=== PATIENT | male | born 1965 | race Caucasian/White ===

== ENCOUNTER 2017-08-03 13:22 | Inpatient (IN) | payer MEDICAID ==
[~2017-08-03] VITALS: Ht 152.4 cm; Wt 102.5 kg
[~2017-08-03 13:22] MED LIST: ASPIRIN325 PO; ASPIRIN81 M2 PO; CATAPRES-TTS 11 EACH TRANSDERM; COZAAR 25 MG TA25 M1 PO; ENOXAPARIN30 MG/0.1 SUBQ; FLOMAX0.4 MG PO; GABAPENTIN 100100 MG PO; HYDROCHLOROTH12.5 M1 PO; LANTUS SUBQ; LIPITOR40 MG PO; METFORMIN HCL500 MG PO; NORVASC10 MG PO; PLAVIX 75 MG TA75 M1 PO; PRINIVIL40 MG PO; TOPROL XL25 MG PO; VITAMIN B-12500 MCG PO; VOLTAREN GEL 1100 G2 TOP; ZOLOFT50 MG PO; [UNRECOGNIZED DRUG - OTHER] TP
[2017-08-03 13:23] VITALS: BP 140/56
[2017-08-03] MEDS ORDERED: IRON325 PO (13:41)
[2017-08-03] MEDS ORDERED: BACTRIM DS TAB1 EACH PO (13:42)
[2017-08-03 14:06] LABS: ABSOLUTE BASOPHILS 0.1 thou/uL (0.0-0.2); ABSOLUTE EOSINOPHILS 0.6 thou/uL (0.0-0.7); ABSOLUTE MONOCYTES 0.6 thou/uL (0.0-1.2); ABSOLUTE NEUTROPHILS 7.1 thou/uL (1.6-8.1); BASOPHILS 1.2 %; EOSINOPHILS 5.6 %; HEMATOCRIT 22.4 % (42.0-52.0); HEMOGLOBIN 7.9 gm/dL (14.0-18.0); LYMPHOCYTES 18.9 %; MCH 29.8 pg (26.0-34.0); MCHC 35.1 g/dL (28.0-37.0); MONOCYTES 6.1 %; MPV 9.8 fl. (7.2-11.1); NUCLEATED RBCS 0 /100WBC; PLATELET COUNT* 202 thou/uL (150-400); POLYS 68.2 %; RBC 2.64 mil/uL (4.50-6.00); WBC 10.5 thou/uL (4.0-11.0)
[2017-08-03 14:13] LABS: CALCIUM 8.3 mg/dL (8.5-10.1); CREATININE 2.2 mg/dL (0.6-1.3); POTASSIUM 4.3 mmol/L (3.5-5.1)
[2017-08-03 14:26] LABS: ALBUMIN 1.5 g/dL (3.4-5.0); TOTAL BILIRUBIN 0.2 mg/dL (<0.1-1.0); TOTAL PROTEIN 5.2 g/dL (6.4-8.2)
[2017-08-03 15:06] LABS: URINE BILIRUBIN NEGATIVE (Negative); URINE BLOOD 2+ (Negative); URINE CLARITY SL CLOUDY; URINE COLOR YELLOW; URINE GLUCOSE-RANDOM TRACE (Negative); URINE KETONES NEGATIVE (Negative); URINE LEUKOCYTES-REFLEX 1+ (Negative); URINE NITRITE-REFLEX NEGATIVE (Negative); URINE PROTEIN 3+ (Negative); URINE UROBILINOGEN 0.2 E.U./dl (0.2-1.0)
[2017-08-03 15:13] LABS: SQUAMOUS NONE SEEN /LPF (0-3); URINE RBC 3-10 Few /HPF (0-2); URINE WBC-REFLEX >25 Many /HPF (0-5); WBC CLUMPS Moderate (None Seen)
[2017-08-03 15:14] LABS: AMORPHOUS URATES Many /LPF (None Seen); COARSE GRANULAR CASTS >10 Many /LPF (None Seen); TRANSITIONAL EPITHEL CELL >10 Many /LPF (None Seen)
[2017-08-03 16:07] VITALS: BP 142/61
[2017-08-03 16:25] VITALS: BP 138/64
[2017-08-03] MEDS ORDERED: LEVEMIR SUBQ (18:43)
[2017-08-03 20:21] VITALS: BP 146/66
[2017-08-03 23:58] VITALS: BP 156/66
[2017-08-04 03:52] VITALS: BP 150/65
[2017-08-04 05:21] LABS: HEMATOCRIT 23.4 % (42.0-52.0); HEMOGLOBIN 7.9 gm/dL (14.0-18.0); MCH 28.9 pg (26.0-34.0); MCHC 33.7 g/dL (28.0-37.0); MCV 85.9 fL (80.0-100.0); RBC 2.72 mil/uL (4.50-6.00); RDW-CV 13.9 % (10.5-14.5); WBC 8.7 thou/uL (4.0-11.0)
[2017-08-04 05:31] LABS: ALBUMIN 1.4 g/dL (3.4-5.0); MAGNESIUM 1.9 mg/dL (1.8-2.4); POTASSIUM 4.1 mmol/L (3.5-5.1); TOTAL BILIRUBIN 0.1 mg/dL (<0.1-1.0); TOTAL PROTEIN 4.8 g/dL (6.4-8.2)
[2017-08-04 09:10] VITALS: BP 154/53
[2017-08-04 12:02] VITALS: BP 162/71
[2017-08-04 12:03] VITALS: BP 162/71
--- NOTE | 2017-08-04 12:56 | EKG ---
[place] [address] ELECTROCARDIOGRAM REPORT Name: DAVID WOODY Room: [address] ADM IN .R.#: [id number] Admission: 08/03/17 Attend Phys: Jessica Jordan MD Discharge: Date of : 65 Report #: [id number] THIS REPORT FOR: //name// [facility] ED Test Date: 2017-08-03 Test Time: 14:05:04 Pat Name: DAVID WOODY Department: Room: [facility] Gender: M Spanish Tutor: Mary Kate GALLOWAY : 1965 Requested By: Patsy Rodas Order Number: [id number] MD: Tao Hernandez Measurements Intervals [place] Rate: 48 P: 12 OR: 160 QRS: -17 QRSD: 110 T: 35 QT: 466 QTc: 417 Interpretive Statements Sinus bradycardia Borderline left axis deviation Abnormal R-wave progression, early transition Baseline wander in lead(s) V2 Compared to ECG 03/30/2017 01:55:18 Sinus rhythm no longer present Electronically Signed On 08-04-2017 12:56:25 SLAG EXPANDER by Tao Hernandez [email or web address] <ELECTRONICALLY SIGNED> By: Tao Hernandez MD, [facility] 08/04/17 1256 1405 1405 Tao Hernandez MD, [facility] /EPI
[2017-08-04 17:50] VITALS: BP 162/73
[2017-08-04 20:27] VITALS: BP 160/68
[2017-08-05] VITALS: BP 154/69
[2017-08-05 05:11] LABS: HEMATOCRIT 24.2 % (42.0-52.0); HEMOGLOBIN 8.3 gm/dL (14.0-18.0); MCH 29.4 pg (26.0-34.0); MCHC 34.4 g/dL (28.0-37.0); MCV 85.6 fL (80.0-100.0); MPV 9.8 fl. (7.2-11.1); RBC 2.83 mil/uL (4.50-6.00); RDW-CV 14.2 % (10.5-14.5); WBC 10.4 thou/uL (4.0-11.0)
[2017-08-05 06:12] LABS: CALCIUM 8.3 mg/dL (8.5-10.1); CREATININE 1.7 mg/dL (0.6-1.3); MAGNESIUM 2.1 mg/dL (1.8-2.4); POTASSIUM 4.1 mmol/L (3.5-5.1)
[2017-08-05 10:00] VITALS: BP 167/78
[2017-08-05 13:30] VITALS: BP 168/67
[2017-08-05 15:30] VITALS: BP 168/67
[2017-08-06 00:31] VITALS: BP 183/87
[2017-08-06 07:41] LABS: HEMOGLOBIN 8.9 gm/dL (14.0-18.0); MCH 29.1 pg (26.0-34.0); MCHC 34.1 g/dL (28.0-37.0); MCV 85.5 fL (80.0-100.0); MPV 9.2 fl. (7.2-11.1); RBC 3.04 mil/uL (4.50-6.00); WBC 11.8 thou/uL (4.0-11.0)
[2017-08-06 07:52] LABS: CALCIUM 8.6 mg/dL (8.5-10.1); CREATININE 1.7 mg/dL (0.6-1.3); MAGNESIUM 2.1 mg/dL (1.8-2.4); POTASSIUM 4.3 mmol/L (3.5-5.1)
[2017-08-06] MEDS ORDERED: CATAPRESS3 TRANSDERM (08:35)
[2017-08-06] MEDS ORDERED: CIPRO500 MG PO (08:35)
[2017-08-06 09:00] VITALS: BP 184/82
[2017-08-06 10:36] VITALS: BP 184/82
[2017-08-06 10:40] VITALS: BP 184/82
[2017-08-06 11:52] VITALS: BP 184/82
== END 2017-08-06 11:50 | DRG 682 ==
LOC: M.ERS 13:22 → M.TBA-ER 15:31 → M.2W 15:31 → M.ORTHSURG 08-05 09:44
PROVIDERS: Physician Assistant; ADMIT Internal Medicine
DX: N17.9 Acute kidney failure, unspecified (principal); G93.40 Encephalopathy, unspecified; N39.0 Urinary tract infection, site not specified; I12.9 Hypertensive chronic kidney disease with stage 1 through stage 4 chronic kidney disease, or unspecified chronic kidney disease; N18.3 Chronic kidney disease, stage 3 (moderate); E11.40 Type 2 diabetes mellitus with diabetic neuropathy, unspecified; E11.22 Type 2 diabetes mellitus with diabetic chronic kidney disease; E11.319 Type 2 diabetes mellitus with unspecified diabetic retinopathy without macular edema; Z98.42 Cataract extraction status, left eye; Z98.41 Cataract extraction status, right eye; Z86.73 Personal history of transient ischemic attack (TIA), and cerebral infarction without residual deficits; Z79.899 Other long term (current) drug therapy; Z88.8 Allergy status to other drugs, medicaments and biological substances

== ENCOUNTER → 2017-08-21 | Outpatient (CLI) | payer MEDICAID ==
[~2017-08-21] MED LIST changes: +BACTRIM DS TAB1 EACH PO; +CATAPRESS3 TRANSDERM; +CEFTAZIDIME IV; +CIPRO500 MG PO; +IRON325 PO; +KLOR-CON 1010 MEQ PO; +LASIX 20 MG TAB20 MG PO; +LEVAQUIN 750 M750 MG PO; +LEVEMIR SUBQ; +LOPRESSOR25 PO; +RENA-VITE TABL0.8 MG PO; +RENAL-VITE TAB0.8 MG PO; +TYLENOL325 MG PO; +VANCO 1 GR1 GM/250 M IVPB; +VANCOCIN 250 M250 M1 PO; +VITAMINC500 PO
== END ==
LOC: M.ULTRA 09:00
DX: N17.9 Acute kidney failure, unspecified (principal); I15.0 Renovascular hypertension; N39.0 Urinary tract infection, site not specified; G93.40 Encephalopathy, unspecified

== ENCOUNTER 2017-10-04 12:13 | Inpatient (IN) | payer MEDICAID ==
[~2017-10-04] VITALS: Ht 185.4 cm; Wt 122.0 kg
[~2017-10-04 12:13] MED LIST changes: -CEFTAZIDIME IV; -KLOR-CON 1010 MEQ PO; -LASIX 20 MG TAB20 MG PO; -LEVAQUIN 750 M750 MG PO; -LOPRESSOR25 PO; -RENA-VITE TABL0.8 MG PO; -RENAL-VITE TAB0.8 MG PO; -TYLENOL325 MG PO; -VANCO 1 GR1 GM/250 M IVPB; -VANCOCIN 250 M250 M1 PO; -VITAMINC500 PO
[2017-10-04 12:14] VITALS: BP 173/73
[2017-10-04] MEDS ORDERED: LASIX 20 MG TAB20 MG PO (12:35)
[2017-10-04] MEDS ORDERED: COZAAR 25 MG TA25 M1 PO (12:35)
[2017-10-04] MEDS ORDERED: KLOR-CON 1010 MEQ PO (12:36)
[2017-10-04] MEDS ORDERED: RENAL-VITE TAB0.8 MG PO (12:36)
[2017-10-04] MEDS ORDERED: VITAMINC500 PO (12:37)
[2017-10-04] MEDS ORDERED: LOPRESSOR25 PO (12:38)
[2017-10-04 13:21] LABS: HEMATOCRIT 22.7 % (42.0-52.0); HEMOGLOBIN 7.6 gm/dL (14.0-18.0); MCHC 33.4 g/dL (28.0-37.0); MCV 89.8 fL (80.0-100.0); MPV 9.4 fl. (7.2-11.1); RBC 2.52 mil/uL (4.50-6.00)
[2017-10-04 13:29] LABS: ANION GAP 6 mmol/L (7-16); BUN 37 mg/dL (7-18); CALCIUM 8.2 mg/dL (8.5-10.1); CHLORIDE 117 mmol/L (98-107); CO2 24 mmol/L (21-32); CREATININE 1.5 mg/dL (0.6-1.3); GLUCOSE 203 mg/dL (70-99); POTASSIUM 4.1 mmol/L (3.5-5.1); SODIUM 147 mmol/L (136-145)
[2017-10-04 13:36] LABS: ALBUMIN 1.1 g/dL (3.4-5.0); ALKALINE PHOSPHATASE 130 U/L (46-116); SGOT 16 U/L (15-37); SGPT 15 U/L (30-65); TOTAL BILIRUBIN 0.2 mg/dL (<0.1-1.0); TOTAL PROTEIN 5.1 g/dL (6.4-8.2); TROPONIN-I LEVEL <0.06 ng/mL (<0.06)
--- NOTE | 2017-10-04 13:45 | NUR ---
PATIENTS SCROTUM IS THE SIZE OF A LARGE GRAPEFRUIT AND RED. MUCUS AROUND TIP OF PENIS WHERE AND CATHETER HAS THICK, DARK YELLOW URINE. BOTTOM IS RED, PEELING AND HAS AN AREA OF DARKER RED, OPEN AREA ON BOTH BUTTOCKS. PATIENT CLEANED AND ROLLED ON TO LEFT SIDE.
[2017-10-04 14:45] LABS: URINE BILIRUBIN NEGATIVE (Negative); URINE BLOOD 2+ (Negative); URINE CLARITY CLOUDY; URINE COLOR YELLOW; URINE GLUCOSE-RANDOM 1+ (Negative); URINE KETONES NEGATIVE (Negative); URINE PROTEIN 3+ (Negative); URINE UROBILINOGEN 0.2 E.U./dl (0.2-1.0)
[2017-10-04 14:51] LABS: URINE LEUKOCYTES-REFLEX 2+ (Negative); URINE NITRITE-REFLEX POSITIVE (Negative)
[2017-10-04 15:01] LABS: BACTERIA-REFLEX 1-9 Few /HPF (None Seen); MUCUS None Seen strn/LPF (None Seen); SQUAMOUS NONE SEEN /LPF (0-3); WBC CLUMPS Few (None Seen)
[2017-10-04 15:02] LABS: AMORPHOUS PHOSPHATES Few /LPF (None Seen); CASTS None Seen /LPF (None Seen)
--- NOTE | 2017-10-04 15:08 | NUR ---
PATIENTS BOTTOM CLEANED AND PATIENT ROLLED ON TO RIGHT SIDE AT THIS TIME.
--- NOTE | 2017-10-04 15:56 | EKG ---
[place] [address] ELECTROCARDIOGRAM REPORT Name: DAVID WOODY Room: [address] IN [facility]#: [id number] Admission: 10/04/17 Attend Phys: Steven Restrepo Discharge: Date of : 65 Report #: [id number] THIS REPORT FOR: //name// [facility] ED Test Date: 2017-10-04 Test Time: 12:30:51 Pat Name: DAVID WOODY Department: Room: Gender: Ear Nose Throat Physician: Mary Kate MUELLER : 1965 Requested By: Moris Hines Order Number: [id number] MD: Anatoly Costa Measurements Intervals [place] Rate: 56 P: 50 MN: 134 QRS: -11 QRSD: 102 T: 41 QT: 426 QTc: 412 Interpretive Statements Sinus rhythm Probable left atrial enlargement RSR' in V1 or V2, probably normal variant Compared to ECG 08/03/2017 14:05:04 RSR' in V1 or V2 now present Sinus bradycardia no longer present Electronically Signed On 10-04-2017 15:55:57 CDT by Anatoly Costa [email or web address] <ELECTRONICALLY SIGNED> By: Anatoly Costa MD, [facility] 10/04/17 1555 1230 1230 Anatoly Costa MD, FAC /EPI
[2017-10-04 16:16] VITALS: BP 174/76
[2017-10-04 17:00] VITALS: BP 174/81
--- NOTE | 2017-10-04 17:06 | NUR ---
WOUND CARE NOTE: WAS REQUESTED TO SEE PATIENT FOR WOUNDS. PATIENT PRESENTS WITH A STAGE 4 PRESSURE ULCER TO THE LEFT HEEL. FULL THICKNESS ULCERATION TO BONE. 100% OF WOUND BED WITH YELLOW, MOIST, ADHERENT SLOUGH. FOUL ODOR. MARVIN-WOUND MACERATED. AREA CLEANSED WITH WOUND CLEANSER, PATTED DRY. APPLIED OPTIFOAM AG AND SECURED WITH KERLIX. PATIENT WITH INCONTINENT ASSOCIATED DERMATITIS TO SACRAL AREA COMPLICATED BY POSSIBLE CANDIDIA. PATIENT IS INCONTINENT OF STOOL, BUT HAS DOWNS CATHETER. REDNESS, BLANCHABLE, SATELITE LESIONS EXTENDING INTO BILATERAL GROIN-WORSE ON LEFT THAN RIGHT. APPLIED BARRIER OINTMENT WITH ANTIFUNGAL. PATIENT TOLERATED WELL. EXTREMELY EDEMATOUS THROUGHOUT. 4+ PITTING PEDAL/LEG. PALPABLE PEDAL PULSES, BUT DIFFICULT DUE TO EDEMA. RECOMMEND TURN Q2 HOURS KEEP HEEL OFF BED--BOOTS ORDERED CONSULT PODIATRY ENCOURAGE GOOD NUTRITION AND HYDRATION FOR WOUND HEALING
--- NOTE | 2017-10-04 17:30 | NUR ---
ER ADMIT FROM ER VIA CART. ADMISSION ASSESSEMENT COMPLETE, DEFER TO COMPUTER CHARTING. BUSINESS INSIGHT AND ANALYTICS MANAGER PLACED TRACKING SR. ALERT, CONFUSED ORIENTED TO SELF ONLY, ANXOUS - REASSURANCE GIVEN. LUNGS DIMINISHED WITH CRACKLES, ROOM AIR WITH 02 SAT 94% - PITTING EDEMA IN EXTREMITIES. STAGE 4 WOUND ON LEFT HEEL, RASH/EXCORIATED AREA MARVIN-AREA AND BOTTOM - CREAM APPLIED. WOUND CARE NURSE NOTIFIED AND INTO SEE PATIENT FOR EVAL/TREATMENT. PATIENT ORIENTED TO ROOM/HOSPITAL AND CALL LIGHT - BED ALARM ON FLOOR SAFETY - LEFT HEEL ELEVATED ON PILLOW OFF MATTRESS - AWAITING FOR SPECIAL PROTECTIVE BOOT TO ARRIVE FOR LEFT FOOT. CALL LIGHT WITHIN REACH. WILL CONTINUE TO MONITOR.
[2017-10-05] VITALS: BP 178/90
--- NOTE | 2017-10-05 00:04 | NUR ---
PT ALERT ORIENTED. CALLS OUT FREQUENTLY HELP HELP. REASURANCE PROVIDED WITH FAST RESPONCE TO CALLS FOR HELP. TELMETRY SHOWS SR. UPPER AND LOWER EXTREMETY EDEMA. PT ON 2000ML FR. ICE CHIPS PROVIDED FOR DRY MOUTH. L HEEL DRSG D/I. UP ON PILLOWS, PERIAREA EXCORIATED. TURN Q 2 HRS. WILL CONTINUE TO MONITOR.
[2017-10-05 04:15] VITALS: BP 169/88
[2017-10-05 08:00] VITALS: BP 165/95
[2017-10-05 12:00] VITALS: BP 181/76
--- NOTE | 2017-10-05 13:18 | NUR ---
VSS, ASUMED CARE IN THE AM, ASSESSMENT PERFORMED AND CHARTED, DOWNS IS DRAINING AND PT IS A Q2 TURN, MAX ASSIST TO GET UP, ON RA AND LEFT SIDE UPPER AND LOWER WEAKNESS, PT STATES PAIN IN BUTT, LEFT HEEL HAS WOUND. PT GAOL IS KEEP ON SIDES AND OGG BUTT. WILL FOLLOW WITH PLAN OF CARE.
--- NOTE | 2017-10-05 13:56 | NUR ---
Pt resides at [facility], known to this CM. Pt is wc bound. Supportive family that is involved in POC. Spoke with Jazzy at [facility], they are able to accept Pt back at co.
[2017-10-05 15:19] VITALS: BP 163/70; BP 181/76
[2017-10-05 17:55] VITALS: BP 159/66
--- NOTE | 2017-10-05 20:01 | NUR ---
VSS, PT IS NOT PROGRESSING TOWARDS GOAL, PT IS BED REST AND A Q2 TURN, PT IS CONFUSED, FEED ARE UP ON PILLOWS AND LEFT HEEL WOUND IS C/D/I AND HAS BOOT ON, PT CALL OUT FOR HELP, FLUID RESTRICT IS IN PLACE AND HAS HAS 600 CC IN PO, PT STATES PAIN IN HIS BACK AND LEFT LEG, DOWNS IS IN PLACE AND IS DRIANING. HOURLY ROUNDS COMPLETED.
[2017-10-06] VITALS (7 sets, daily range): BP systolic 126–190; BP diastolic 60–102
--- NOTE | 2017-10-06 04:58 | NUR ---
PATIENT RESTED IN BED, NO ACUTE CHANGES. PATIENT DID NOT SHOW SIGNS OF DISTRESS, PATIENT TURNED Q2 HOURS. FLUID RESTRUTION IN PLACE, DOWNS IS PATENT. FALL PRECAUTIONS IN PLACE, BED ALARM ON, CALL LIGHT WITHIN REACH.
--- NOTE | 2017-10-06 09:10 | NUR ---
VSS, ASSUMED CARE IN THE AM, ASSESSMENT PERFORMED AND CHARTED, FALL PRECAUTIONS IN PLACE AND CALL LIGHT IN RECAH, PT HAS WOUND ON LEFT HEEL, SITE BLEEDS A LOT AND WRAPS HAVE BEEN RECHANGED AND DRESSED, PT IS CONFUSED, HAS LEFT SIDE WEEKNEES AND NEED HELP WITH FEEDING, PT IS TRACING SR ON THE MONITOR AND CALLS OUT FOR HELP A LOT, HE IS A Q2 TURN AND HAS A DOWNS IN PLACE WHICH IS DRAINING, PT GOAL IS TO IMPROVE WOUND HEALING, WILL FOLLOW WITH PLAN OF CARE.
[2017-10-07] VITALS (7 sets, daily range): BP systolic 125–187; BP diastolic 67–87
--- NOTE | 2017-10-07 05:49 | NUR ---
PATIENT RESTED IN BED, NO ACUTE CHANGES. FALL PRECAUTIONS IN PLACE, BED ALARM ON, PATIENT TURNED Q2 HOURS, CALL LIGHT WITHIN REACH. PATIENT DRESSING IS DRY, PATIENT HAS ELEVATED BLOOD PRESSURE. CALL TO DOCTOR ADRIANE REGARDING BLOOD PRESSURE, SEE ORDERS. PATIENT DID NOT SHOW SIGNS OF DISTRESS.
--- NOTE | 2017-10-07 11:40 | NUR ---
ASSUMED CARE OF PATIENT THIS AM AT 0730. PATIENT IS ALERT, CONFUSED AND FORGETFUL THIS AM. HE C/O BEING THIRSTY AND OF BACK PAIN WITH POSITION CHANGES. PATIENT REPOSITIONED Q 2 HR AND ASSISTED WITH MEALS AND ADLS THROUGH THE DAY. PATIENT IS TAKING HIS MEALS WELL. HE CONTINUES ON LUID RESTRICTION. TELE SHOWS SR. BED ALARM IS ON AND CALL LIGHT IS IN REACH. PATIENT'S VS ARE STABLE THIS AM. DRESSING IS INTACT TO RIGHT FOOT. WILL CONTINUE PLAN OF CARE.
[2017-10-07 16:29] LABS: MCH 30.3 pg (26.0-34.0); MCHC 34.3 g/dL (28.0-37.0); MCV 88.5 fL (80.0-100.0); MPV 8.5 fl. (7.2-11.1); RBC 1.87 mil/uL (4.50-6.00); WBC 8.9 thou/uL (4.0-11.0)
[2017-10-07 16:35] LABS: HEMOGLOBIN 5.7 gm/dL (14.0-18.0)
[2017-10-07 16:36] LABS: HEMATOCRIT 16.5 % (42.0-52.0)
[2017-10-07 16:37] LABS: CALCIUM 8.1 mg/dL (8.5-10.1); CREATININE 1.5 mg/dL (0.6-1.3); POTASSIUM 4.9 mmol/L (3.5-5.1)
[2017-10-07 16:47] LABS: TOTAL BILIRUBIN 0.2 mg/dL (<0.1-1.0); TOTAL PROTEIN 4.5 g/dL (6.4-8.2)
[2017-10-08] VITALS (7 sets, daily range): BP systolic 158–180; BP diastolic 70–90
--- NOTE | 2017-10-08 04:19 | NUR ---
PATIENT BLOOD PRESSURE ELEVATED, DOCTOR KAMI NOTIFIED, GIOVANNI ORDERD.
--- NOTE | 2017-10-08 05:34 | NUR ---
PATIENT RESTED IN BED, NO ACUTE CHANGES. PATIENT DID NOT SHOW SIGNS OF DISTRESS. PATIENT HAD HIGH BLOOD PRESSURE. PATIENT RECIEVED ONE UNIT OF BLOOD, SECOUND UNIT HAS BEGUN. FALL PRECAUTIONS IN PLACE, BED ALARM ON, CALL LIGHT WITHIN REACH, HOURLY ROUNDING OBSERVED.
--- NOTE | 2017-10-08 06:04 | NUR ---
CALLS TO FAMILY WAS PLACED FOR BLOOD CONSENT. MESSAGE WAS LEFT, DOCTOR NOTIFIED, DOCTOR OVERRULED.
--- NOTE | 2017-10-08 06:11 | NUR ---
PATIENT HAD BOWEL MOVEMENT TODAY.
[2017-10-08 17:07] LABS: ABSOLUTE BASOPHILS 0.1 thou/uL (0.0-0.2); ABSOLUTE EOSINOPHILS 0.5 thou/uL (0.0-0.7); ABSOLUTE LYMPHOCYTES 1.4 thou/uL (0.8-5.3); ABSOLUTE MONOCYTES 0.6 thou/uL (0.0-1.2); ABSOLUTE NEUTROPHILS 7.4 thou/uL (1.6-8.1); BASOPHILS 0.8 %; EOSINOPHILS 4.5 %; HEMATOCRIT 24.3 % (42.0-52.0); LYMPHOCYTES 14.5 %; MCH 30.2 pg (26.0-34.0); MCV 88.9 fL (80.0-100.0); MONOCYTES 5.8 %; MPV 9.6 fl. (7.2-11.1); NUCLEATED RBCS 0 /100WBC; PLATELET COUNT* 249 thou/uL (150-400); POLYS 74.4 %; RBC 2.74 mil/uL (4.50-6.00); RDW-CV 15.1 % (10.5-14.5); WBC 9.9 thou/uL (4.0-11.0)
[2017-10-08 17:11] LABS: HEMOGLOBIN 8.3 gm/dL (14.0-18.0)
--- NOTE | 2017-10-08 19:47 | NUR ---
RECEIVED REPORT ADN ASSUMED CARE AT 0730. VSS, CARDIAC MONITORING IN PLACE. PT ALERT ADN ORIENTATED TO SELF ONLY. PT ON RA, BEDREST. PT ON 1200 FR. PT IV INFILTRATED AND IV DISCONTINUED AND NEW IV STARTED BY NURSING. PT HAD VASCULAR SURGERY CONSULTED FOR WOUND ON L HEEL. EDEMA 2-3 UPPER AND LOWER EXTREMITIES. PT PREVIOUS HGB 5.7 RECEIVED 2 UNITS 5/13PM SHIFT, REDRAW 8.3. HOURLY ROUNDING COMPLETED AND ALL NEEDS MET. PT POSSIBLE DISCHARGE IN 1-2 DAYS PER PHYSICIAN. PT HAS DOWNS CATHETER/ INCONT OF BOWEL. NURSING WILL CONTINUE TO MONITOR. CALL LIGHT WITHIN REACH, BED IN LOWEST POSITION. BED ALARM ON
[2017-10-09 00:48] VITALS: BP 181/80
[2017-10-09 04:43] VITALS: BP 138/75
--- NOTE | 2017-10-09 05:26 | NUR ---
PT IS ABLE TO COMMUNICATE HIS NEEDS TO STAFF WITH MINOR DIFFICULTY; HE REQUIRES SOME ADDITIONAL TIME TO ANSWER QUESTIONS AND OFTEN FORGETS WHY HE CALLED. FREQUENT USE OF THE CALL LIGHT; PT HAS SOME ANXIOUS BEHAVIORS. YARELI ROWE. LEFT HEEL IN HEEL SUSPENSION BOOT. PT HAS TOLERATED TURNS WELL THUS FAR THIS SHIFT.
[2017-10-09 10:03] VITALS: BP 168/78
[2017-10-09 11:00] VITALS: BP 158/70
--- NOTE | 2017-10-09 12:10 | NUR ---
Pt discharging back to [facility] today, ambulance to pick up worker and transport at 2pm. Faxed dc orders. Chart copied. Nurse report number provided, . Updated Jazzy at [facility]. Updated Pt's parents.
[2017-10-09] MEDS ORDERED: LEVAQUIN 750 M750 MG PO (12:26)
[2017-10-09 12:32] VITALS: BP 158/70
--- NOTE | 2017-10-09 14:14 | NUR ---
OBTAIN DISCHARGE PICTURES OF PATIENTS WOUNDS WITH COLLECTIONS ATTORNEY.
--- NOTE | 2017-10-09 14:28 | NUR ---
REPORT CALLED TO [facility].
--- NOTE | 2017-10-09 14:39 | NUR ---
PT DISCHARGED TO [facility]IA [facility]. TELE AND IV DISCONTINUED AND ALL ORDERS SENT WITH PATIENT.
--- NOTE | 2017-10-10 16:19 | NUR ---
RECEIVED CALL FROM DR RUSSO TO SET UP [facility] APPT CONSULT WITH DR COON AND DR GENAO, PLACE PICC LINE AND START VANCO IV 750MG Q12HR X1WK AND THEN REST OF ORDERS PER DR GENAO. PT DC'D YESTERDAY TO [facility]. CALL TO [facility], SPOKE WITH TEREZA OF NURSING AND GAVE INFO, FAXED ORDER TO HER AT [phone]. IVORY MARTINEZ SET UP [facility]PT FOR 10/17. COPY OF ORDER FAXED TO MR TO BE PLACED IN PT'S CHART WELL GIVEN TO TREE [facility]ASON TO F/U WITH [facility] TO ASSIST.
--- NOTE | 2017-10-17 12:52 | CON ---
[facility] [address] [place] [address] CONSULTATION Name: DAVID WOODY Room: [address] IN M.R.#: [id number] Admission: 10/04/17 Attend Phys: Steven Restrepo Discharge: 10/09/17 Date of : 65 Report #: [id number] THIS REPORT FOR: //name// CC: Jimmy Arreaga DATE OF SERVICE: 10/08/2017 ADDENDUM: LABORATORY DATA: WBC 8.9, RBC 1.87, hemoglobin 5.7, hematocrit 16.5, platelets 252. BUN 36, creatinine 1.5, glucose 93. PHYSICAL EXAMINATION: Large posterior ulceration of the left calcaneus with exposed bone, no bonnie necrosis to the tissue or bone. There is pale fibro-necrotic tissue along the margins. There is minimal inflammation, no bonnie cellulitis. No signs of acute vascular embarrassment. No pallor or cyanosis noted. The area is tender to the touch. IMPRESSION: Status post debridement left posterior calcaneus due to osteomyelitis and deep tissue infection. PLAN: The wound was cleansed and redressed with Aquacel Ag, ABDs and gauze. I reviewed noninvasive arterial Doppler study, which shows symmetric pulse volume recordings to both lower extremities. The ABIs are inaccurate due to non-compressibility. We will continue to offload the calcaneus in PRAFO boot, parenteral antibiotics per Infectious Disease. We will obtain a Vascular Surgery consult for input related to healing potential. <ELECTRONICALLY SIGNED> By: Mekhi Manley DPM 10/17/17 1252 1716 [id number] Manley DPM /nt
--- NOTE | 2017-10-17 12:52 | CON ---
[address] [address] CONSULTATION Name: BONGDAVID L Room: [address] IN .R.#: [id number] Admission: 10/04/17 Attend Phys: Steven Restrepo Discharge: 10/09/17 Date of : 65 Report #: [id number] THIS REPORT FOR: //name// CC: Jimmy Arreaga CHIEF COMPLAINT: Chronic ulceration to left posterior calcaneus. HISTORY OF PRESENT ILLNESS: Duration of wound unknown. The patient is noncommunicative with prior CVA. He was admitted to the Emergency Department yesterday due to onset of high blood pressure and increased weakness. He has been afebrile with no constitutional symptoms. PAST MEDICAL HISTORY: Significant for hypertension and prior stroke. The patient is nonambulatory. He has type 2 diabetes mellitus, diabetic retinopathy and neuropathy, chronic kidney disease stage 3, a small stroke in 2016 and severe stroke in 2017. PHYSICAL EXAMINATION: Large wound to the left posterior calcaneus, full thickness with odor. The wound has pale fibroid necrosis, with no granulation or healthy tissue. There is low-grade inflammation surrounding the area. There is no palpable or visible bone. There is sanguinous drainage on his bandage. He has advanced edema to both legs, faintly palpable dorsalis pedis and posterior tibial pulses bilaterally. IMPRESSION: Chronic ulceration, left posterior calcaneus with diabetes mellitus. PLAN: I recommend surgical debridement in the operating room under local anesthesia. We will obtain noninvasive arterial studies as well. <ELECTRONICALLY SIGNED> By: Mekhi Manley DPM 10/17/17 1252 1656 0004Mekhi Manley DPM /nt
--- NOTE | 2017-10-17 12:52 | CON ---
[address] [address] CONSULTATION Name: DAVID WOODY Room: [address] IN ..#: [id number] Admission: 10/04/17 Attend Phys: Steven Restrepo Discharge: 10/09/17 Date of : 65 Report #: [id number] THIS REPORT FOR: //name// CC: Jimmy Arreaga DATE OF SERVICE: 10/08/2017 CHIEF COMPLAINT: Postoperative debridement of left heel for osteomyelitis and deep tissue infection. Surgical cultures grew Pseudomonas aeruginosa and Diphtheroids. He is on parenteral vancomycin and ciprofloxacin. He is anemic, on fluid restriction. He is nonambulatory, status post cerebrovascular accident. LABORATORY DATA: WBC 8.9, RBC 1.87, hemoglobin 5.7, hematocrit 16.5, platelets 252. BUN 36, creatinine 1.5, glucose 93. PHYSICAL EXAMINATION: Large posterior ulceration of the left calcaneus with exposed bone, no bonnie necrosis to the tissue or bone. There is pale fibro-necrotic tissue along the margins. There is minimal inflammation, no bonnie cellulitis. No signs of acute vascular embarrassment. No pallor or cyanosis noted. The area is tender to the touch. IMPRESSION: Status post debridement left posterior calcaneus due to osteomyelitis and deep tissue infection. PLAN: The wound was cleansed and redressed with Aquacel Ag, ABDs and gauze. I reviewed noninvasive arterial Doppler study, which shows symmetric pulse volume recordings to both lower extremities. The ABIs are inaccurate due to non-compressibility. We will continue to offload the calcaneus in PRAFO boot, parenteral antibiotics per Infectious Disease. We will obtain a Vascular Surgery consult for input related to healing potential. <ELECTRONICALLY SIGNED> By: Mekhi Manley DPM 10/17/17 1252 1712 [id number] Manley DPM /nt
--- NOTE | 2017-10-17 12:52 | OP ---
[facility] [address] [place] [address] OPERATIVE REPORT Name: BONGDAVID Harish Room: [address] IN .R.#: [id number] Admission: 10/04/17 Attend Phys: Steven Restrepo Discharge: 10/09/17 Date of : 65 Report #: [id number] THIS REPORT FOR: //name// CC: Jessica Sheppard SURGEON: Mekhi Manley DPM PREOPERATIVE DIAGNOSIS: Ulceration with soft tissue infection to left posterior calcaneus. POSTOPERATIVE DIAGNOSIS: Ulceration with soft tissue infection to left posterior calcaneus. PROCEDURE: Debridement left calcaneus, bone and soft tissue, left foot. ANESTHESIA: MAC. INJECTABLES: 30 mL of a 1:1 mixture of 0.5% Marcaine plain and 1% lidocaine plain. ESTIMATED BLOOD LOSS: Roughly 30 mL. SPECIMENS: Soft tissue, left posterior heel. CULTURES: Soft tissue, aerobic and anaerobic. COMPLICATIONS: None. DESCRIPTION OF PROCEDURE: The patient was brought to the OR and placed on the table supine with induction of MAC anesthesia. No tourniquet was used. A local spray left ankle block was given and the extremity was prepped and draped aseptically. I used a #10 surgical scalpel blade to excise the full extent of the soft tissue defect down to the calcaneus. This tissue was fibronecrotic in nature with no healthy granulation. A portion was sent for aerobic and anaerobic culture, and the remaining was sent for pathology. The underlying bone was then visualized and was somewhat soft, but there is no bonnie necrosis or discernible lysis. I used a curette to curettage the posterior surface of the calcaneus, which was fairly hard bone. I could not ascertain whether there was osteomyelitis during the procedure. Once the bone was curettaged, the wound was flushed and the wound was dressed with Aquacel Ag, ABDs, Kerlix and Bry bandage. The patient left the OR with no complications noted. <ELECTRONICALLY SIGNED> By: Mekhi Manley DPM 10/17/17 1252 1653 [id number] Manley DPM /nt
--- NOTE | 2017-10-17 12:52 | CON ---
[facility] [address] [place] [address] CONSULTATION Name: DAVID WOODY Room: [address] IN .R.#: [id number] Admission: 10/04/17 Attend Phys: Steven Restrepo Discharge: 10/09/17 Date of : 65 Report #: [id number] THIS REPORT FOR: //name// CC: Jimmy Arreaga DATE OF SERVICE: 10/07/2017 CHIEF COMPLAINT: Postoperative day #2 for soft tissue debridement and curettage of left calcaneus. Surgical soft tissue cultures growing Gram-negative rods, Gram-positive rods and Gram-negative cocci. He is on IV Levaquin 750 mg. He has been afebrile with stable vitals. He is on a fluid restriction. There are no new labs for review. PHYSICAL EXAMINATION: Serosanguineous drainage through his bandage. No bonnie inflammation or cardinal signs of infection and there is no pallor or cyanosis to the periwound. There is some maceration along the periwound margin, no granulation in the wound bed at this point or exposed calcaneus bone. There is some slough at the margins. The wound is stable with no acute vascular embarrassment or necrosis. IMPRESSION: Status post debridement, left calcaneus with deep tissue infection. PLAN: The wound was cleansed and redressed with Aquacel Ag, ABDs, Kerlix, Bry and a PRAFO boot for offloading. We will change bandage daily, awaiting surgical cultures. <ELECTRONICALLY SIGNED> By: Mekhi Manley DPM 10/17/17 1252 0709 [id number] Manley DPM /nt
== END 2017-10-09 14:00 | DRG 622 ==
LOC: M.ERS 12:13 → M.TBA-ER 14:00 → M.2W 16:34
PROVIDERS: Emergency Medicine Emergency Medical Services; Internal Medicine; ADMIT Internal Medicine
PROC: 0JBR0ZZ Excision of Left Foot Subcutaneous Tissue and Fascia, Open Approach (ICD-10-PCS; principal; 2017-10-07)
DX: E11.621 Type 2 diabetes mellitus with foot ulcer (principal); G93.41 Metabolic encephalopathy; J18.9 Pneumonia, unspecified organism; N39.0 Urinary tract infection, site not specified; M86.8X7 Other osteomyelitis, ankle and foot; D64.9 Anemia, unspecified; R31.9 Hematuria, unspecified; E11.22 Type 2 diabetes mellitus with diabetic chronic kidney disease; N18.3 Chronic kidney disease, stage 3 (moderate); I12.9 Hypertensive chronic kidney disease with stage 1 through stage 4 chronic kidney disease, or unspecified chronic kidney disease; L97.529 Non-pressure chronic ulcer of other part of left foot with unspecified severity; E11.69 Type 2 diabetes mellitus with other specified complication; Z86.73 Personal history of transient ischemic attack (TIA), and cerebral infarction without residual deficits; E11.40 Type 2 diabetes mellitus with diabetic neuropathy, unspecified; E11.319 Type 2 diabetes mellitus with unspecified diabetic retinopathy without macular edema; Z98.42 Cataract extraction status, left eye; Z98.41 Cataract extraction status, right eye; Z79.899 Other long term (current) drug therapy; Z79.82 Long term (current) use of aspirin; Z79.4 Long term (current) use of insulin; Z88.8 Allergy status to other drugs, medicaments and biological substances

== ENCOUNTER 2017-10-11 11:28 | Inpatient (IN) | payer MEDICAID ==
[~2017-10-11] VITALS: Ht 175.3 cm; Wt 124.3 kg
[~2017-10-11 11:28] MED LIST changes: +KLOR-CON 1010 MEQ PO; +LASIX 20 MG TAB20 MG PO; +LEVAQUIN 750 M750 MG PO; +LOPRESSOR25 PO; +RENAL-VITE TAB0.8 MG PO; +VITAMINC500 PO
[2017-10-11 11:38] VITALS: BP 184/113
[2017-10-11] MEDS ORDERED: TYLENOL325 MG PO (11:50)
[2017-10-11] MEDS ORDERED: RENA-VITE TABL0.8 MG PO (11:52)
[2017-10-11] MEDS ORDERED: VANCOCIN 250 M250 M1 PO (11:52)
[2017-10-11 12:47] LABS: HEMOGLOBIN 9.5 gm/dL (14.0-18.0); MCH 29.5 pg (26.0-34.0); MCHC 33.8 g/dL (28.0-37.0); MCV 87.2 fL (80.0-100.0); MPV 9.1 fl. (7.2-11.1); NUCLEATED RBCS 0 /100WBC; PLATELET COUNT* 312 thou/uL (150-400); RBC 3.21 mil/uL (4.50-6.00); RDW-CV 15.3 % (10.5-14.5); WBC 18.3 thou/uL (4.0-11.0)
[2017-10-11 12:54] LABS: URINE BILIRUBIN NEGATIVE (Negative); URINE BLOOD 3+ (Negative); URINE CLARITY CLEAR; URINE COLOR RED; URINE GLUCOSE-RANDOM 1+ (Negative); URINE KETONES TRACE (Negative); URINE LEUKOCYTES-REFLEX TRACE (Negative); URINE PROTEIN 3+ (Negative); URINE SPECIFIC GRAVITY 1.025 (1.005-1.030)
[2017-10-11 12:57] LABS: URINE NITRITE-REFLEX POSITIVE (Negative)
[2017-10-11 12:58] LABS: CALCIUM 8.3 mg/dL (8.5-10.1); CREATININE 1.6 mg/dL (0.6-1.3); POTASSIUM 4.9 mmol/L (3.5-5.1)
[2017-10-11 13:02] LABS: ALBUMIN 1.4 g/dL (3.4-5.0); TOTAL BILIRUBIN 0.2 mg/dL (<0.1-1.0); TOTAL PROTEIN 4.6 g/dL (6.4-8.2)
[2017-10-11 13:06] LABS: SQUAMOUS 0-3 Few /LPF (0-3); URINE WBC-REFLEX 0-5 Rare /HPF (0-5)
[2017-10-11 13:07] LABS: CASTS None Seen /LPF (None Seen); CRYSTALS None Seen /LPF (None Seen); MUCUS None Seen strn/LPF (None Seen)
[2017-10-11 13:34] LABS: ABSOLUTE BASOPHILS 0.2 thou/uL (0.0-0.2); ABSOLUTE LYMPHOCYTES 1.3 thou/uL (0.8-5.3); ABSOLUTE MONOCYTES 0.4 thou/uL (0.0-1.2); ABSOLUTE NEUTROPHILS 16.5 thou/uL (1.6-8.1)
[2017-10-11 13:36] LABS: PLATELET ESTIMATE ADEQUATE
[2017-10-11 13:37] LABS: ANISOCYTOSIS Occasional; HYPOCHROMASIA Occasional; MACROCYTES 1+
--- NOTE | 2017-10-11 14:14 | NUR ---
UROLOGY IS PREPARING TO CATHETERIZE PT IN ROOM.
--- NOTE | 2017-10-11 14:30 | NUR ---
UROLOGY INSERTED A COUDE CATHETER INTO PT AND IRRIGATED UNTIL CLEAR URINE WAS DRAINING INTO DOWNS BAG. PT STATES CURRENT PAIN IS 1/10. PT'S DIAPER WAS REMOVED, PT WAS CLEANED UP, SHEETS AND BLANKETS CHANGED. PT IS DRY, VSS AND IS CURRENTLY SLEEPING. PT TOLERATED IRRIGATION WELL. WILL CONTINUE TO MONITOR.
[2017-10-11 15:58] VITALS: BP 149/73
[2017-10-11 17:02] LABS: HEMATOCRIT 27.4 % (42.0-52.0); HEMOGLOBIN 9.2 gm/dL (14.0-18.0)
[2017-10-11 17:09] VITALS: BP 168/79
--- NOTE | 2017-10-11 17:29 | NUR ---
PT ARRIVED TO THE FLOOR AT 1610. PT ORIENTED TO THE UNIT AND SERVICES. PT C/O PAIN CONTROLLED WITH IV PAIN MEDICATIONS. PT IS LETHARGIC BUT EASILY ARROUSED. PT VSS ON ROOM AIR AND TRACING NSR ON THE MONITOR. NURSING WILL CONTINUE TO MONITOR.
--- NOTE | 2017-10-11 18:33 | NUR ---
PT CONTINUES TO BE ALERT BUT LETHARGIC AND EASILY ARROUSED. PT CURRENTLY RESTING IN BED WITH EYES CLOSED, BREATHING EVEN AND UNLABORED AT A NORMAL RATE AND DEPTH. NURSING WILL CONTINUE TO MONITOR.
--- NOTE | 2017-10-11 18:36 | NUR ---
DR GARAY BY TO SEE PT. DR GARAY STATED URINE LOOKS CLEAR YELLOW AT THIS TIME AND TO CONTINUE TO MONITOR. DR GARAY STATED THERE WILL LIKELY BE SOME BLEEDING FROM THE TIP OF THE PENIS D/T UREATHRAL TRAUMA. NURSING WILL CONTINUE TO MONITOR.
[2017-10-11 19:30] VITALS: BP 151/82
[2017-10-11 21:02] LABS: HEMOGLOBIN 8.8 gm/dL (14.0-18.0)
--- NOTE | 2017-10-11 21:36 | NUR ---
ASSUMED CARE OF PT AT 1900. PT IS CONFUSED. VSHernesto GOODSON. NO COMPLAINTS OF PAIN. PT IS A STRICT Q2 TURN. PT HAS BREAKDOWN ON HIS COCCYX. PT IS UNABLE TO MOVE HIS LEFT ARM AND HIS LEFT LEG. PT HAS +3 PITTING EDEMA IN HIS LOWER EXTREMITIES. PT ALSO HAS +4 SCROTAL EDEMA. PT HAS BLOOD COMING FROM HIS URETHRA AROUND HIS CATHETER. HIS URINE IN THE CATHETER IS DARK YELLOW. NO BLOOD NOTED IN CATHETER. PT IS IN SINUS RYTHM ON THE TELEMETRY. PT IS RESTING COMFORTABLY IN BED. RESPIRATIONS ARE EVEN AND NONLABORED. WILL CONTINUE TO MONITOR PT.
[2017-10-12] VITALS: BP 148/67
[2017-10-12 00:48] LABS: HEMATOCRIT 22.8 % (42.0-52.0); HEMOGLOBIN 7.7 gm/dL (14.0-18.0)
[2017-10-12 04:00] VITALS: BP 161/68
[2017-10-12 04:55] LABS: ABSOLUTE BASOPHILS 0.1 thou/uL (0.0-0.2); ABSOLUTE EOSINOPHILS 0.2 thou/uL (0.0-0.7); ABSOLUTE LYMPHOCYTES 0.6 thou/uL (0.8-5.3); ABSOLUTE MONOCYTES 0.6 thou/uL (0.0-1.2); ABSOLUTE NEUTROPHILS 11.3 thou/uL (1.6-8.1); BASOPHILS 0.8 %; EOSINOPHILS 1.7 %; HEMOGLOBIN 8.2 gm/dL (14.0-18.0); LYMPHOCYTES 4.6 %; MCH 29.9 pg (26.0-34.0); MCV 87.9 fL (80.0-100.0); MONOCYTES 4.7 %; MPV 9.5 fl. (7.2-11.1); NUCLEATED RBCS 0 /100WBC; POLYS 88.2 %; RBC 2.73 mil/uL (4.50-6.00); RDW-CV 15.2 % (10.5-14.5); WBC 12.8 thou/uL (4.0-11.0)
[2017-10-12 05:20] LABS: PLATELET COUNT* 209 thou/uL (150-400)
[2017-10-12 05:39] LABS: CALCIUM 7.8 mg/dL (8.5-10.1); CREATININE 1.6 mg/dL (0.6-1.3)
[2017-10-12 07:30] VITALS: BP 175/90
[2017-10-12 09:39] LABS: HEMATOCRIT 23.4 % (42.0-52.0); HEMOGLOBIN 7.9 gm/dL (14.0-18.0)
[2017-10-12 11:57] VITALS: BP 156/70
--- NOTE | 2017-10-12 12:00 | NUR ---
RECEIVED PT CARE 0700. PT IS AWAKE/ALERT AND ORIENTED X2. HE IS ABLE TO TELL ME HIS NAME/BIRTHDAY AND HIS LOCATION. HE DENIES ANY SOA. O2 SAT 98% ON ROOM AIR. VSS. PHOTONICS ENGINEER TRACING SB. HEART RATE 50'S. DOWNS DRAINING DARK YELLOW URINE TO DEPENDENT DRAIN. BLOOD AROUND HIS DOWNS CATHETER SITE NOTED. PATIENT CLEANED UP AND LINENS CHANGED. REPOSITIONED PATIENT FOR COMFORT.AM ASSESSMENT CHARTED. MEDS PER JUL. DISCUSSED PLAN WITH NEPHROLOGY AND UROLOGY. ADVANCED TO DIABETIC DIET, PATIENT NEEDS ASSIST WITH MEALS BUT IS ABLE TO FEED HIMSELF WITH SUPERVISION. BED ALARM ON. CALL LIGHT WITHIN REACH. WILL CONTINUE TO MONITOR.
[2017-10-12 12:47] LABS: HEMATOCRIT 24.7 % (42.0-52.0); HEMOGLOBIN 8.4 gm/dL (14.0-18.0)
--- NOTE | 2017-10-12 13:29 | NUR ---
ORDERS RECEIVED AND CHART REVIEWED. SPOKE TO HENRY, AT [facility]. PATIENT REQUIRES TOTAL ASSISTANCE FOR ALL MOBILITY WITH THE AIDE OF A MAURICE LIFT. HE DOES PERFORM ANY FUNCTIONAL MOBILITY DUE TO LATE AFFECTS OF CVA AND COGNITIVE IMPAIRMENTS. SKILLED P.T. SERVICES ARE NOT WARRANTED IN THIS CASE PATIENT'S NORMAL STATUS IS DEPENDENT. THANK-YOU FOR THIS REFERRAL. JEROME BEACH, MPT
--- NOTE | 2017-10-12 13:48 | NUR ---
Pt discharged from this hospital earlier this week, readmitted with UTI, Perinephric hematoma. Pt resides at [facility], bound, staff assist with iADLS. Supportive parents. Goal is to return to [facility] at [place] Following.
--- NOTE | 2017-10-12 14:18 | NUR ---
WOUND CARE NOTE: CONSULT RECEIVED FOR COCCYX WOUND AND LEFT HEEL. PATIENT KNOWN TO ME FROM PREVIOUS HOSPITAL STAY. LEFT HEEL: STAGE 4 PRESSURE ULCER MEASURING 4.5X6.5X2.5. WOUND BED IS 80% PINK, NON-GRANULAR TISSUE AND 20% DARK, DISCOLORED TISSUE AND YELLOW SLOUGH. OLD DRESSING SATURATED WITH SEROSANGUINEOUS DRAINAGE. MARVIN-WOUND IS MACERATED. WOUND WAS CLEANSED WITH WOUND CLEANSER, PATTED DRY. APPLIED AQUACEL AG INTO WOUND BED AND COVERED WITH ABD. SECURED WITH KERLIX. PATIENT IS EXTREMELY EDEMATOUS TO BILATERAL LOWER EXTREMITIES. APPLIED PODUS BOOT TO THE LEFT FOOT AND OFFLOADED RIGHT HEEL WITH PILLOW. PATIENT HAS A HEALING FUNGAL TYPE RASH TO SACROCOCCYGEAL REGION. CLEANSED THEN APPLIED BARRIER OINTMENT WITH ANTIFUNGAL. RECOMMEND TURN Q2 HOURS PODUS BOOT TO LEFT HEEL OFFLOAD RIGHT HEEL WITH PILLOW DAILY DRESSING CHANGES ENCOURAGE GOOD NUTRITION AND HYDRATION TIGHT BLOOD GLUCOSE CONTROL
[2017-10-12 16:36] LABS: HEMATOCRIT 24.5 % (42.0-52.0); HEMOGLOBIN 8.3 gm/dL (14.0-18.0)
--- NOTE | 2017-10-12 17:34 | NUR ---
PATIENT PROGRESSING TOWARDS GOALS. PAIN CONTROLLED WITH PRN PAIN MEDICATION. PATIENT NEEDS ASSIST WITH MEALS. HE IS TOLERATING HIS DIET WELL WITHOUT NAUSEA OR VOMITING. WOUND CARE COMPLETED THIS AFTERNOON WITH LOAD OUT WORKER. LEFT HEEL PICTURE TAKEN AND ON PATIENTS CHART. PATIENT REPOSITIONED FOR COMFORT THROUGHOUT THIS SHIFT. HOURLY ROUNDING CHARTED. BED ALARM ON. WILL MONITOR FREQUENTLY.
[2017-10-12 17:40] VITALS: BP 212/89
[2017-10-12 20:00] VITALS: BP 162/75
[2017-10-12 20:22] LABS: HEMATOCRIT 23.3 % (42.0-52.0); HEMOGLOBIN 7.9 gm/dL (14.0-18.0)
[2017-10-13] VITALS: BP 150/68
[2017-10-13 01:16] LABS: HEMATOCRIT 23.1 % (42.0-52.0); HEMOGLOBIN 7.9 gm/dL (14.0-18.0)
--- NOTE | 2017-10-13 02:09 | NUR ---
TOOK PT INTO CARE AT 1930. ASSESSMENT COMPLETED CHARTED. A & O X1-2, YELLS OUT TO MAKE NEEDS KNOWN, LEFT SIDE HEMIPARSIS FROM PREVIOUS CVA, EDEMA IN SCROTUM AND BLE 3+ PITTING, SLIGHT BLEEDING FROM URETHRA, Q2HR TURNS, PRN PAIN MEDICATION GIVEN NEEDED, DOWNS PATIENT AND DRAINING DARK TEA COLORED URINE, RIGHT WRIST IV PATIENT AND SL AT THIS TIME. H & H TAKEN Q4HR TILL 1230 TODAY. WILL CONTINUE WITH PLAN OF CARE.
[2017-10-13 04:00] VITALS: BP 141/91
[2017-10-13 05:08] LABS: ABSOLUTE BASOPHILS 0.1 thou/uL (0.0-0.2); ABSOLUTE LYMPHOCYTES 0.4 thou/uL (0.8-5.3); ABSOLUTE MONOCYTES 0.3 thou/uL (0.0-1.2); ABSOLUTE NEUTROPHILS 5.9 thou/uL (1.6-8.1); EOSINOPHILS 0.4 %; HEMATOCRIT 23.8 % (42.0-52.0); HEMOGLOBIN 8.1 gm/dL (14.0-18.0); LYMPHOCYTES 5.8 %; MCH 30.5 pg (26.0-34.0); MCHC 34.2 g/dL (28.0-37.0); MCV 89.1 fL (80.0-100.0); MONOCYTES 4.4 %; MPV 9.1 fl. (7.2-11.1); NUCLEATED RBCS 0 /100WBC; PLATELET COUNT* 169 thou/uL (150-400); POLYS 88.4 %; RBC 2.67 mil/uL (4.50-6.00); RDW-CV 15.2 % (10.5-14.5); WBC 6.6 thou/uL (4.0-11.0)
[2017-10-13 06:33] LABS: CALCIUM 7.8 mg/dL (8.5-10.1); CREATININE 1.6 mg/dL (0.6-1.3); POTASSIUM 4.6 mmol/L (3.5-5.1); TOTAL BILIRUBIN 0.2 mg/dL (<0.1-1.0); TOTAL PROTEIN 3.8 g/dL (6.4-8.2)
[2017-10-13 07:30] VITALS: BP 186/91
[2017-10-13 09:18] LABS: HEMATOCRIT 22.6 % (42.0-52.0); HEMOGLOBIN 7.6 gm/dL (14.0-18.0)
--- NOTE | 2017-10-13 09:28 | CON ---
[address] [address] CONSULTATION Name: BONGDAVID Harish Room: [address] IN M.R.#: [id number] Admission: 10/11/17 Attend Phys: Kain Antoine MD Discharge: Date of : 65 Report #: [id number] THIS REPORT FOR: //name// CC: Kain Sheppard DATE OF SERVICE: 10/12/2017 INFECTIOUS DISEASE CONSULTATION ATTENDING PHYSICIAN: Kain Antoine M.D. 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 HISTORY OF PRESENT ILLNESS: Chart reviewed, the patient examined. This is a 52-year-old with extensive medical history given his age. He has had previous stroke with left-sided weakness. He has got a fairly profound encephalopathy and as a result, he is quite disabled and lives in a nursing facility. He had been hospitalized twice this month, initially for several days with acute encephalopathy. This was complicated by some renal failure and urinary tract infection. He was discharged only to be readmitted. He is noted to have long-standing ulceration involving the left calcaneal site. He has been undergoing wound care with Dr. Manley. He underwent reevaluation in the Emergency Room on 10/11/2017 and had gross hematuria at that point with scrotal edema. He does have a long-standing indwelling Stokes catheter and had poor urine output. He did undergo recent plain film of the left foot, including the calcaneus, which showed cortical bone loss, raising concern about osteomyelitis. He does have a vascular surgery pending. Recent chest x-ray actually shows improvement of bilateral perihilar infiltrates. He is unable to give any details of his history. He is empirically started on ceftriaxone and vancomycin. Review of cultures of the site, dating 10/05/2017, showed Diphtheroids, Morganella and Pseudomonas. The Pseudomonas is generally susceptible, the Morganella is somewhat resistant, including early generation beta lactams, quinolones and carbapenem. ALLERGIES: LISTED TO LISINOPRIL. CURRENT MEDICATIONS: Include clonidine, vancomycin, amlodipine, folic acid, ferrous sulfate, clopidogrel, aspirin, ceftriaxone, pantoprazole, metoprolol, insulin, atorvastatin, p.r.n. analgesics and antiemetics. PAST MEDICAL HISTORY: As noted above, has diabetes mellitus which has been complicated by diabetic retinopathy. He has neuropathy, vasculopathy with previous CVA, chronic renal [place] [address] CONSULTATION Name: DAVID WOODY Room: [address]#: [id number] Admission: 10/11/17 Attend Phys: Kain Antoine MD Discharge: Date of : 65 Report #: [id number] SOCIAL HISTORY: Nonsmoker. No ethanol. FAMILY HISTORY: Noncontributory. REVIEW OF SYSTEMS: Not reliably obtained. PHYSICAL EXAMINATION: GENERAL: He appears chronically ill, much older than his stated age, undernourished. He is quite markedly encephalopathic. VITAL SIGNS: Temperature 98.4, pulse 58, respirations 17 and blood pressure 156/70. SKIN: Warm, dry. No rashes. NECK: Supple. LUNGS: Diminished breath sounds. Few scattered crackles. HEART: Regular. Borderline bradycardic. I do not appreciate a murmur. ABDOMEN: Soft. EXTREMITIES: Left foot was evaluated. There is a deep ulceration involving the posterior plantar aspect, clearly suggestive of a pressure-induced ischemic-type wound. There is a moderate degree of inflammation. On palpation of this wound, there is not apparent exposure to bone at this point, although the tissue is not perfectly healthy appearing. I do note significant odor. There is no overt purulence. There is some bloody drainage. GENITOURINARY: Deferred. RECTAL: Deferred. LABORATORY DATA: Urine culture unremarkable. Blood cultures from 10/11/2017 sterile thus far. Electrolytes: Sodium 142, potassium 5.0, chloride 116, bicarbonate is 21, anion gap of 5, BUN and creatinine 33 and 1.6 and estimated GFR of 46. CBC of 12.8, H and H 8.2 and 24.0 and platelets 209,000. Chest x-ray as described above. ASSESSMENT AND PLAN: Deep pressure-induced ischemic ulcer with necrosis involving the posterior plantar aspect of the left heel, with clinical radiograph evidence of probable chronic osteomyelitis. We will adjust the therapy based on recent culture results. Dr. Manley will evaluate and I will get additional imaging. Certainly, likely candidate for surgical intervention at this point. He is limited in his activity to a limiting factor as well as his overall nutritional status. We will monitor expectantly. Certainly at risk for nosocomial-related infectious complications. <ELECTRONICALLY SIGNED> By: Wade Howell MD 10/13/17 0928 1401 [id number] Howell MD /nt
--- NOTE | 2017-10-13 11:09 | NUR ---
NRSG AND PHYSICAL THERAPY REPORT THAT THEY HAVE TALKED WITH NRSG AT [facility] AND THAT PT IS DEPENDENT FOR ALL FUNCTIONAL MOBILITY AND ADLS DUE TO PREVIOUS CVA- PHYSICAL AND COGNITIVE IMPAIRMENTS. PT IS AT PRIOR LEVEL OF FUNCTIONING (DEPENDENT FOR ADLS AND FUNCTIONAL MOBILITY) AND OT SERVICES ARE NOT RECOMMENDED AT THIS TIME.
[2017-10-13 12:05] VITALS: BP 166/73
[2017-10-13 12:26] LABS: HEMATOCRIT 22.8 % (42.0-52.0); HEMOGLOBIN 7.8 gm/dL (14.0-18.0)
[2017-10-13 15:39] VITALS: BP 190/85
--- NOTE | 2017-10-13 19:25 | NUR ---
PATIENT PROGRESSING TOWARDS GOALS. PATIENT DENIES ANY SOA. O2 SAT 99% ON ROOM AIR. REPOSITIONED EVERY 2 HOURS TO KEEP PATIEN OFF HIS BOTTOM. PATIENT NEEDS SETUP FOR MEALS AND ASSISTANCE WITH FEEDING. PAIN CONTROLLED WITH PRN PAIN MEDICATION. HE HAD AN INCONTINENT BOWEL MOVEMENT THIS AFTERNOON. TOLERATING HIS DIET WELL WITHOUT ANY NAUSEA OR VOMITING. DOWNS CONTINUES TO DRAIN TEA COLORED URINE. HOURLY ROUNDING CHARTED. BED ALARM ON. CALL LIGHT WITHIN REACH. WILL CONTINUE TO MONITOR.
[2017-10-13 20:00] VITALS: BP 153/72
[2017-10-14] VITALS (7 sets, daily range): BP systolic 153–180; BP diastolic 64–74
--- NOTE | 2017-10-14 05:57 | NUR ---
ASSUMED PATIENT CARE AT 1999. PATIENT A&0 X3. CALLS OUT FOR "HELP FREQUENTY. DOWNS CATH IN PLACE TO DEPENDENT DRAINAGE. IV PATENT. PATIENT TURNED PATIENT EVERY 2 HOURS. MINOR COMPLAINT OF PAIN, NOT HELPED WITH MEDICATIONRN ASSESSMENT AND HOURLY ROUNDIN COMLETED DOCUMENTED
--- NOTE | 2017-10-14 10:12 | NUR ---
ASSUMED CARE OF PT THIS AM AROUND 0715- POURER METAL IN PLACE ORDERED, TRACING SB/SR- UPON ASSESSMENT PT NOTED TO BE RESTING IN BED- NOTED TO BE YELLING OUT "HELP" ALOT BUT UPON CHECKING ON PT, PT DOES NOT KNOW WHAT HE WANTS- PT A&O X1 WITH NOTED CONFUSION-BED REST IN PLACE WITH Q2 HOUR TURNS- LEFT SIDED HEMIPARESIS NOTED- INCONTINENT OF BOWEL, DOWNS IN PLACE D/D CLEAR TEA COLORED URINE- LCTA, DIMINISHED IN BASES- RESP EVEN AND UN-LABORED- VSS, 02 SAT 985 ON RA- ABDOMEN FORM/ROUND/NON-TENDER, BS X4 QUADS- PT REPORTED TO HAVE HAD BM LAST 10/13/17- FAIR PO INTAKE NOTED THIS AM WITH ASSISTANCE THIS AM, BS AC PRESCIBED-IV NOTED TO RIGHT AC SL, IV ABT GIVEN THIS AM PRESCIBED- DRESSING C/D/I TO LEFT HEEL, BOOTS IN PLACE TO BLE INDICATED- ANTIFUNGAL CREAME TO BUTTOCKS ORDERED-CALL LIGHT AND PERSONAL BELONGINGS WITH IN REACH- HOURLY CHECKS IN PLACE R/T SAFETY/NEEDS- ALL NEEDS MET AT THIS TIME-WCTM
[2017-10-14 12:44] LABS: HEMATOCRIT 21.9 % (42.0-52.0); HEMOGLOBIN 7.3 gm/dL (14.0-18.0); MCH 30.1 pg (26.0-34.0); MCHC 33.3 g/dL (28.0-37.0); MCV 90.2 fL (80.0-100.0); MPV 9.8 fl. (7.2-11.1); RBC 2.43 mil/uL (4.50-6.00); RDW-CV 15.5 % (10.5-14.5); WBC 5.7 thou/uL (4.0-11.0)
[2017-10-14 12:49] LABS: CALCIUM 7.5 mg/dL (8.5-10.1); CREATININE 1.6 mg/dL (0.6-1.3); POTASSIUM 4.5 mmol/L (3.5-5.1)
--- NOTE | 2017-10-14 16:32 | NUR ---
PT HEENA RESTING IN BED, EYES CLOSED- TRAVEL AGENT CONTINUED ORDERED, TRACING SB- IV TO RIGHT AC INTACT AND SL- IV ABT GIVEN THIS AM PRESCRIBED, NO ADVERSE RESACTIONS TO NOTE- VANC TROUGH THIS SHIFT REPORTED AT 30, NOTIFIED- VANC CONTINUES TO BE ON HOLD, REDRAW SCHEDULED FOR 10/15/17- ID HERE TO ASSESS THIS SHIFT WITH COMMNICATION RECIEVED FOR POSSIBLE PICC PLACEMENT LILIA FOR CONTINUED NEED FOR IV ABT AT TIME OF D/C- HERE TO ASSESS AND CHANGE DRESSING TO LEFT HEEL THIS SHIFT- AREA AND CLEANED AND DRESSED PER PHYSICIAN, PIC OBTAINED AND PLACED ON CHART FOR VIEWING- Q 2 HOUR TURNS CONTINUED, ANTIFUNGAL CREAM TO COCCYX INDICATED-SMALL INCONTINENT BM NOTED THIS SHIFT-ASSISTANCE WITH ENCOURAGEMENT NEED WITH MEALS, FAIR PO INTKE NOTED- MOTHER AND FATHER UP HERE TO VISIT THIS AFTERNOON- BLACK HEEL SUSPENSION BOOTS ORDERED PER AND IN PLACE TO LEFT LE ORDERED- CALL LIGHT AND PERSONAL BELONGINGS WITH IN REACH- ALL NEEDS MET AT THIS TIME-[facility]
--- NOTE | 2017-10-15 02:26 | NUR ---
TOOK PT INTO CARE AT 1930. ASSESSMENT COMPLETED CHARTED. ABLE TO MAKE SOME NEEDS KNOWN, CALLS OUT TO STAFF, Q2HR TURN, BEDREST, SB ON THE MONITOR, IV IN RIGHT WRIST SL, LEFT SIDED HEMIPARISIS FROM PAST STROKE. BLOOD CULTURES SHOWED YEAST IN ONE OF THE VIALS, NOTIFIED AND GOT ORDERS FOR REDRAW OF BLOOD CULTURES. WILL CONTINUE TO MONITOR AND WILL CONTINUE WITH PLAN OF CARE.
[2017-10-15 04:00] VITALS: BP 126/78
--- NOTE | 2017-10-15 07:20 | NUR ---
CHANGE OF SHIFT BEDSIDE REPORT GIVEN PATIENT SEEN AT BEDSIDE, ASLEEP IN BED ASSUMED PATIENT CARE
[2017-10-15 08:00] VITALS: BP 211/96
[2017-10-15 08:35] LABS: HEMATOCRIT 22.3 % (42.0-52.0); HEMOGLOBIN 7.5 gm/dL (14.0-18.0); MCH 29.7 pg (26.0-34.0); MCHC 33.7 g/dL (28.0-37.0); MCV 88.2 fL (80.0-100.0); MPV 9.7 fl. (7.2-11.1); RBC 2.53 mil/uL (4.50-6.00); RDW-CV 14.7 % (10.5-14.5); WBC 7.6 thou/uL (4.0-11.0)
[2017-10-15 08:39] LABS: CALCIUM 7.9 mg/dL (8.5-10.1); CREATININE 1.5 mg/dL (0.6-1.3); POTASSIUM 4.3 mmol/L (3.5-5.1)
--- NOTE | 2017-10-15 09:19 | NUR ---
Pt ready to dc back to [facility] today, pending PICC placement and final IVABX orders. Updated Jazzy at [facility]. Following.
--- NOTE | 2017-10-15 11:56 | NUR ---
CONSULTED TO PLACE PICC FOR PT NEEDING LANG TERM ATB THERAPY. RADHA REVIEWED AND NOTED PT HAS HAD STROKE CAUSING LEFT SIDE WEEKNESS. PHONE CONSENT FROM [facility] AND ORDER NOTED. RIGHT UPPER ARM ASSESSED WITH ULTRASOUND. LEFT CEPHALIC NOTED TO BE RYAN STRATTON. 4FR SINGLE LUMAN POWER PICC PLACED WITH OUT COMPLICATION PER HOSPITAL POLICY. LINE TRIMMED AT AT 48CM AND ADVANCED TO 45CM LEAVING 3CM EXTERNAL. TIP CONFIMED WITH SHERLOCK 3CG. LINE SECURED AND RELEASED FOR IMMEDIATE USE. [facility] AWARE.
[2017-10-15 12:13] VITALS: BP 176/76
[2017-10-15 15:35] VITALS: BP 173/74
--- NOTE | 2017-10-15 15:50 | NUR ---
Pt discharging back to [facility] today. Chart copied. Nurse report number provided, . Updated Pt's mother. Ambulance to flower picker and transport at 530.
[2017-10-15] MEDS ORDERED: VANCO 1 GR1 GM/250 M IVPB (16:00)
[2017-10-15] MEDS ORDERED: CEFTAZIDIME IV (16:02)
[2017-10-15 16:06] VITALS: BP 173/74
--- NOTE | 2017-10-15 18:15 | NUR ---
PATIENT DCD TO SNF TO [facility] VIA AMBULANCE REPORT GIVEN TO [employer] SENT WITH TRANSPORT PICC LINE SINGLE LUMEN DRSG CHANGED PRIOR TO DISCHARGE, DUE TO BLOOD UNDER DRSG INDWELLING DOWNS TO DD IN PLACE L HEEL DRSG CHANGED PER ORDERS PRIOR TO DISCHARGE TOTAL BATH IN BED GIVEN PRIOR TO DISCHARGE AND GOWN CHANGED PATIENT LEFT VIA AMBULANCE GOOD CONDITION
--- NOTE | 2017-10-16 10:28 | CON ---
[address] [address] CONSULTATION Name: BONGDAVID Harish Room: [address] IN ..#: [id number] Admission: 10/11/17 Attend Phys: Kain Antoine MD Discharge: 10/15/17 Date of : 65 Report #: [id number] THIS REPORT FOR: //name// CC: Kain Sheppard DATE OF SERVICE: 10/12/2017 CONSULTING PHYSICIAN: Kain Antoine MD REASON FOR NEPHROLOGY CONSULTATION: Elevated creatinine, gross hematuria. REASON FOR ADMISSION: Gross hematuria. HISTORY OF PRESENT ILLNESS: This is a 52-year-old male with past medical history of multiple CVAs who lives in a facility, has left-sided hemiplegia, has contractures who was [facility] because he was having gross hematuria. In the ER, he was found to have a left perinephric hematoma and possible bladder tumor. Urology evaluated his Stokes catheter. Apparently, the patient recently had a Stokes catheter placed, but it was in his distal urethra and the patient was having gross hematuria yesterday. CT scan showed possibility of a bladder clot versus bladder mass. Stokes catheter was replaced by Urology and orders were for irrigation as needed and overnight his gross hematuria has improved. The patient was also noted to have anasarca with albumin of 1.4. The patient is a poor historian, not able to give any history of this swelling is new or not. The patient also has a past medical history of hypertension and diabetes type 2 and he is on insulin. His baseline creatinine seems to be 1.3-1.5, but his creatinine is elevated to 1.6 at this time. At this nursing facility in addition to other the medications, he also takes Lasix 40 mg a day as well as losartan 25 mg a day. Overnight, he did receive some IV fluids, but they have been stopped now. His blood pressures have been to his higher side, but a little bit more controlled this morning in 170 systolic. The patient is asking for water. His mucous membranes are very dry, but he is otherwise very swollen. He also has been started on antibiotics for a possible UTI, although his UA did not show wbc's in it. With antibiotics, his white count has improved from 18,000 yesterday to 13,000 today. The patient is currently not oriented and he is not able to give any history. There is no history of trauma, which could have led to the left perinephric hematoma. He is on aspirin 325 mg a day at home and not in any other anticoagulation. Urology is closely following him. REVIEW OF SYSTEMS: Gross hematuria, which is now getting better. The patient is asking for water since he is very thirsty, but otherwise he is not oriented, not able to give further history. He also has generalized anasarca. ALLERGIES: [place] [address] CONSULTATION Name: DAVID WOODY Room: [address]#: [id number] Admission: 10/11/17 Attend Phys: Kain Antoine MD Discharge: 10/15/17 Date of : 65 Report #: [id number] PAST MEDICAL HISTORY: Includes history of insulin-dependent diabetes mellitus, diabetic retinopathy, neuropathy, CKD stage 3 with baseline creatinine 1.3-1.5, likely because of diabetes type 2 as well as hypertension, bilateral cataracts, stroke in 2016 and another stroke in 03/2017, left-sided hemiplegia, hypertension. PAST SURGICAL HISTORY: Reviewed. SOCIAL HISTORY: Lives in a facility. He does not use recreational drugs or smoke or use alcohol. FAMILY HISTORY: No history of any kidney disease in the family that I saw in the chart. The patient was not able to give me history about his family history. MEDICATIONS: At his facility included clonidine patch, Tylenol, vancomycin p.o., amlodipine, atorvastatin, aspirin 325 mg a day, insulin, Plavix, losartan 25 mg a day, potassium chloride 10 mEq a day, levofloxacin, furosemide 40 mg a day, metoprolol 50 mg b.i.d., ferrous sulfate 325 mg a day. PHYSICAL EXAMINATION: VITAL SIGNS: Blood pressure is 175/90, pulse rate 63, temperature is 36.9, respiratory rate is 16, pulse ox is 99% on room air. GENERAL: He is awake, but he is not oriented and he is asking for water. HEAD, EYES, EARS, NOSE, THROAT: Atraumatic, normocephalic. Mucous membranes are very dry. Poor dentition. NECK: There is no JVD. CHEST: Bilaterally clear to auscultation. No crackles or wheezing. CARDIOVASCULAR: S1, S2 normal. No murmurs heard. ABDOMEN: It is soft and it is obese. It is not tender. Bowel sounds are diminished. His abdominal wall edema about 1-2+. EXTREMITIES: Lower extremities, he has 3+ lower extremity edema bilaterally. GENITOURINARY: He also has scrotal edema about 2+. He has a Stokes catheter in place which is draining dark urine. NEUROLOGICAL FUNCTION: Left-sided weakness, not oriented. PSYCHIATRIC: Cannot assess right now. LABORATORY DATA: White count 13,000 today; hemoglobin is 8.2. Sodium was 142, potassium was 5, creatinine was 1.6, CO2 was 21. All the labs were reviewed. IMAGING: Testicular ultrasound, chest x-ray and abdominal CT. They were reviewed. ASSESSMENT AND PLAN: 1. Acute kidney injury on chronic kidney disease, stage 3, likely because of [facility] [address] [place] [address] CONSULTATION Name: BONGDAVID Harish Room: [address]#: [id number] Admission: 10/11/17 Attend Phys: Kain Antoine MD Discharge: 10/15/17 Date of : 65 Report #: [id number] intravascular volume depletion and ARB and urinary retention: The patient had a Stokes catheter, which was not in its proper place and not draining bladder and he was retaining urine yesterday and hence Stokes catheter was replaced. He has been draining his catheter well and has had about 900 mL of urine output over the last 24 hours. Looking at his serum albumin being 1.4 and with his history of diabetes, he could very well have a nephrotic range proteinuria. UA does show 3+ protein, but it also shows 3+ blood. So urine protein to creatinine ratio has to be repeated once his gross hematuria is improved. For now, since he looks intravascularly volume depleted, we will hold off on diuretics, but may have to diurese him in a couple of days. Continue to monitor his creatinine closely. There was evidence of bilateral ureterectasis on his CT scan and he also had a left-sided perinephric hematoma, the etiology of which is not known. Likely, has chronic kidney disease stage 3 because of diabetic and hypertensive nephropathy and should follow up with Nephrology on a chronic basis. 2. Anasarca: As mentioned above, hold off on diuretics right now since creatinine is above his baseline. May have to start diuresis in a couple of days. Urine protein to creatinine ratio should be repeated once his hematuria is better. 3. Gross hematuria, possible bladder mass versus bladder clot: Urology is closely following him and irrigation has been done as needed and hematuria is getting better. The patient will need a cystoscopy at a later date. We will defer to Urology. 4. Left-sided perinephric hematoma: Etiology is not clear. Urology is closely monitoring that. Hemoglobin has dropped a little bit from 9.5 to 8.2 this morning, but he was also receiving IV fluids overnight. 5. Possible urinary tract infection: It could be urinary tract infection since the patient does not have any wbc's. The patient's white count has improved with antibiotics, so we will recommend to continue antibiotics until culture results are back. 6. Left-sided adrenal mass: The patient has incidentally found left-sided adrenal mass: Workup will be needed as an outpatient. 7. Right-sided hydrocele and epididymal inflammation and scrotal swelling: Urology is closely monitoring him, scrotal elevation. Will need diuretics added in near future. Thank you for this consultation and we will continue to monitor him closely. I discussed plan with Dr. Antoine and the patient's nurse. <ELECTRONICALLY SIGNED> By: Aggie Frausto MD 10/16/17 1028 1050 [id number] Frausto MD /nt
--- NOTE | 2017-10-17 12:52 | CON ---
[address] [address] CONSULTATION Name: DAVID WOODY Room: [address] IN .R.#: [id number] Admission: 10/11/17 Attend Phys: Kain Antoine MD Discharge: 10/15/17 Date of : 65 Report #: [id number] THIS REPORT FOR: //name// CC: Kain Sheppard DATE OF SERVICE: 10/14/2017 CHIEF COMPLAINT AND HISTORY OF PRESENT ILLNESS: Status post debridement to left calcaneus for deep tissue infection and osteomyelitis. He had polymicrobial soft tissue infection, he is currently on parenteral cefepime and vancomycin with good tolerance. He has been afebrile with no constitutional symptoms. No new labs for review today. PHYSICAL EXAMINATION: The left lower extremity is very edematous, no ulcerations to the leg. The posterior calcaneal wound has no inflammation or bonnie cellulitis. The wound has exposed bone with some granular buds mixed with translucent slough. There is no odor, necrosis or cardinal signs of infection. The rhea-wound is tender to the touch. There is no pallor, cyanosis or signs of acute vascular compromise. No other lesions are noted to his extremities. IMPRESSION: Osteomyelitis, left calcaneus with deep tissue infection. PLAN: The wound was cleansed and pictures were taken for the chart. It was redressed with Aquacel Ag, ABDs, Kerlix gauze. I ordered a soft Prevalon PRAFO boot to offload the heel because the Multi Podus boot was causing an indentation due to the edema. We will follow daily during hospital stay. <ELECTRONICALLY SIGNED> By: Mekhi Manley DPM 10/17/17 1252 1206 [id number] Manley DPM /nt
--- NOTE | 2017-10-17 12:52 | CON ---
[address] [address] CONSULTATION Name: BONGDAVID L Room: [address] IN .R.#: [id number] Admission: 10/11/17 Attend Phys: Kain Antoine MD Discharge: 10/15/17 Date of : 65 Report #: [id number] THIS REPORT FOR: //name// CC: Kain Sheppard MD DATE OF SERVICE: 10/13/2017 CHIEF COMPLAINT: Status post debridement, left posterior calcaneus for deep tissue infection and osteomyelitis. Polymicrobial infection, surgical cultures grew Pseudomonas aeruginosa, Morganella, Proteus mirabilis and Providencia. He is currently on parenteral vancomycin and cefepime. I debrided the left wound and inferior calcaneus on 10/05/2017. The bone did not have obvious necrosis. No specimens were submitted at that time due to the nature of the debridement, which was curettage of the posterior heel. The area was pulse lavaged and open packed with Aquacel Ag and gauze and off loaded with PRAFO boot. He has a schedule to follow up at [facility] with myself and Dr. Howell next week, although that may be pushed back due to his current hospitalization. The patient will likely benefit from a wound vacuum at some point. I would like the soft tissue infection to clear up with stable wound bed prior to application. He currently resides at halfway facility. Admission blood cultures negative x 2. He relates some discomfort to the left inferior heel with direct pressure. LABORATORY DATA: WBC 6.6, RBC 2.67, hemoglobin 7.6, hematocrit 22.6, platelets 169, BUN 34, creatinine 1.6, glucose 96. PHYSICAL EXAMINATION: Dressing is dry, clean and intact with no bleed through. I spoke with the wound nurse, Marleen , she says the wound was stable with no active bleeding or necrosis. IMPRESSION: Status post debridement to left calcaneus with osteomyelitis. PLAN: We will continue offloading and topical wound care. Antibiotics per Infectious Disease. At some point, I would like to have placement of a wound vacuum once I feel the soft tissue infection is sufficiently controlled. No further plans for surgical debridement at this point, although that is a possibility pending his clinical course. <ELECTRONICALLY SIGNED> By: Mekhi Manley DPM 10/17/17 1252 0947 [id number] Manley DPM /nt
== END 2017-10-15 18:00 | DRG 698 ==
LOC: M.ERS 11:28 → M.TBA-ER 13:32 → M.2W 16:06
PROVIDERS: Family Medicine; Personal Emergency Response Attendant; Physician Assistant; ADMIT Internal Medicine
PROC: 05HD33Z Insertion of Infusion Device into Right Cephalic Vein, Percutaneous Approach (ICD-10-PCS; principal; 2017-10-15)
DX: T83.028A Displacement of other urinary catheter, initial encounter (principal); G93.40 Encephalopathy, unspecified; M86.8X7 Other osteomyelitis, ankle and foot; I69.354 Hemiplegia and hemiparesis following cerebral infarction affecting left non-dominant side; R65.10 Systemic inflammatory response syndrome (SIRS) of non-infectious origin without acute organ dysfunction; D62 Acute posthemorrhagic anemia; S37.012A Minor contusion of left kidney, initial encounter; N39.0 Urinary tract infection, site not specified; N17.9 Acute kidney failure, unspecified; R31.0 Gross hematuria; I12.9 Hypertensive chronic kidney disease with stage 1 through stage 4 chronic kidney disease, or unspecified chronic kidney disease; E11.22 Type 2 diabetes mellitus with diabetic chronic kidney disease; N18.3 Chronic kidney disease, stage 3 (moderate); L89.629 Pressure ulcer of left heel, unspecified stage; E11.69 Type 2 diabetes mellitus with other specified complication; N40.1 Benign prostatic hyperplasia with lower urinary tract symptoms; R33.8 Other retention of urine; F01.50 Vascular dementia, unspecified severity, without behavioral disturbance, psychotic disturbance, mood disturbance, and anxiety; N28.89 Other specified disorders of kidney and ureter; E11.621 Type 2 diabetes mellitus with foot ulcer; E11.40 Type 2 diabetes mellitus with diabetic neuropathy, unspecified; E11.319 Type 2 diabetes mellitus with unspecified diabetic retinopathy without macular edema; Z98.42 Cataract extraction status, left eye; Z98.41 Cataract extraction status, right eye; Z79.02 Long term (current) use of antithrombotics/antiplatelets; Z79.4 Long term (current) use of insulin; Z79.82 Long term (current) use of aspirin; Z79.899 Other long term (current) drug therapy; Z88.8 Allergy status to other drugs, medicaments and biological substances; X58.XXXA Exposure to other specified factors, initial encounter; Y93.89 Activity, other specified; Y92.89 Other specified places as the place of occurrence of the external cause; Y99.8 Other external cause status; Y83.8 Other surgical procedures as the cause of abnormal reaction of the patient, or of later complication, without mention of misadventure at the time of the procedure